=== PATIENT | female | born 1995 | race Caucasian/White ===

== ENCOUNTER 2020-05-13 11:01 | Day surgery (SDC) | payer BC ==
[2020-05-13 11:36] VITALS: BP 124/71; BMI 23.6
[2020-05-13] MEDS ORDERED: hydrALAZINE 20 MG/ML VIAL SLOW IVP PRN (11:55)
[2020-05-13] MEDS ORDERED: FLU VACC QS2020-21(6MOS UP)/PF 60 MCG/0.5 ML SYRINGE IM ONE (12:15)
[2020-05-13 12:57] LABS: FFN Internal QC Analyzer PASS (PASS); FFN Internal QC Cassette PASS (PASS); Fetal Fibronectin Negative (Negative)
--- NOTE | 2020-05-13 13:03 | ULT ---
Limited obstetrical ultrasound: 05/13/2020 COMPARISON: None HISTORY: 24-year-old female with vaginal spotting TECHNIQUE: Multiplanar grayscale sonographic imaging of the gravid uterus obtained with transabdomina l and translabial imaging FINDINGS: A single intrauterine gestation is present demonstrating a vertex presentation. The placent a is located posteriorly, demonstrating no evidence for previa or abruption. heart rate is 133 bpm. Amniotic fluid index is 7.7 cm. Cervical length is estimated at 3.4 cm on translabial imaging. anatomy is not evaluated on this exam. IMPRESSION: Single intrauterine gestation as detailed above. Cervical length is estimated at 3.4 cm. Amniotic fluid index of 7.7 cm.
--- NOTE | 2020-05-13 14:01 | PRG ---
DATE OF SERVICE: 05/13/2020 TIME OF SERVICE: 1330 hours. PRESENTING COMPLAINT: Spotting at 29 weeks gestation. HISTORY OF PRESENT ILLNESS: Ms. Doyle reports some spotting noted on the toilet tissue. She wiped this morning. No gross bleeding. No leakage of fluid. Active fetus. Occasional cramping. She has not had intercourse recently. She sees Dr. Shayan Perry at [facility] and reports an uncomplicated . [employer] HISTORY: As noted. Primigravida. BRICE of 07/28. She is blood type B positive, antibody negative. Pap negative. Rubella immune. VDRL nonreactive. Hepatitis B, GC, Chlamydia negative. 50 g was 124. MEDICAL HISTORY: None. SURGICAL HISTORY: Jaw surgery. ALLERGIES: DENIES. MEDICATIONS: vitamins. SOCIAL HISTORY: Denies tobacco, alcohol, or drug use. FAMILY HISTORY: Noncontributory. REVIEW OF SYSTEMS: Noncontributory. PHYSICAL EXAMINATION: GENERAL: White female, in no acute distress. VITAL SIGNS: Temperature 98.2, pulse rate 85, respirations 18, blood pressure 117/82. HEENT: Within normal limits. LUNGS: Clear to auscultation bilaterally. HEART: Regular rate and rhythm. ABDOMEN: Soft and nontender. Fundal height of 29 cm. FHTs are 140s. Vulva without lesions. Vaginal exam was performed by RN with fibronectin collection which revealed no blood or mucus noted and a closed long cervix. EXTREMITIES: No clubbing, cyanosis, or edema. fibronectin was negative. DIAGNOSTIC STUDIES: Ultrasound was performed, which revealed cervical length of approximately 3.5 cm with a posterior placenta. No previa and an ELI of 7.7. This ELI seems to be on the low end for gestational age, however, is not consistent with oligohydramnios. monitoring is carried out for greater than an hour which revealed no contractions. Positive accelerations, no decelerations, category 1 heart rate tracing. IMPRESSION: Vaginal spotting, likely due to Valsalva and/or friable cervix at 29 weeks. No evidence of labor or persistent bleeding. PLAN: Reassurance. The patient will keep scheduled followup with Dr. Perry. Dr. Perry notified of the hospitalization and findings, and ER precautions given to the patient. Job ID: [id number]
== END 2020-05-13 13:30 | disposition home health service (06) ==
LOC: L&D/OP 11:01
PROVIDERS: ATTEND Obstetrics & Gynecology
DX: O26.853 Spotting complicating pregnancy, third trimester (principal); Z3A.29 29 weeks gestation of pregnancy
CPT/HCPCS: 76815; 82731

== ENCOUNTER 2020-07-29 19:38 | Inpatient (IN) | payer BC ==
[~2020-07-29 19:38] MED LIST: Bupivacaine 0.25% HCL 30 ML VIAL ONE
[2020-07-29] MEDS ORDERED: HYDROcodone/Acetaminophen 5/325 mg Tablet PO PRN ×2 (21:22)
[2020-07-29] MEDS ORDERED: Lidocaine 1% (PF) 30 ML VIAL SC PRN (21:22)
[2020-07-29] MEDS ORDERED: Butorphanol Tartrate 1 MG/ML VIAL SLOW IVP PRN (21:22)
[2020-07-29] MEDS ORDERED: Ondansetron PF 4 MG/2 ML Vial IVP PRN ×2 (21:22→23:56)
[2020-07-29] MEDS ORDERED: Ibuprofen 800 MG TAB PO PRN (21:22)
[2020-07-29] MEDS ORDERED: NS / Oxytocin 40 units/1000ml 1,000 ML IV PRN (21:22)
[2020-07-29] MEDS ORDERED: hydrALAZINE 20 MG/ML VIAL SLOW IVP PRN (21:22)
[2020-07-29] MEDS ORDERED: Promethazine HCl 25 MG/ML VIAL IM PRN ×2 (21:22→23:56)
[2020-07-29] MEDS: Lactated Ringer's 1,000 ML IV SCH ×2 (21:31→23:31)
--- NOTE | 2020-07-29 22:13 | HP ---
TIME OF EVALUATION: Roughly 2109, it is now 2126. A patient of Dr. Perry. CHIEF COMPLAINT: Contractions/pelvic pain at 40 weeks and 1 day. HISTORY OF PRESENT ILLNESS: This is a 24-year-old, G1, P0 with an EDC of July 28, making her 40 weeks and 1 day. She states that she was seen yesterday in the office and everything was fine. She is here for now regular contractions about every 2 to 4 minutes, but no leakage of fluid, no vaginal bleeding, and she has good movement. She denies fever, recent trauma, or sick contacts. REVIEW OF SYSTEMS: GENERAL: No sick contacts. No fever. No chills. PULMONARY: No shortness of breath. CARDIOVASCULAR: No chest pain. EXTREMITIES: No unusual lower extremity edema, or pain. PAST MEDICAL HISTORY: Negative. PAST SURGICAL HISTORY: Negative. ALLERGIES: NONE. OBSTETRICAL HISTORY: She is a G1, P0. MEDICATIONS: Include vitamins. SOCIAL HISTORY: Negative for alcohol, tobacco, and drug use. PHYSICAL EXAMINATION: VITAL SIGNS: Her vitals show a temperature of 98.5, pulse of 80, respirations are 18, blood pressure is 139/86. GENERAL: She is in no acute distress. ABDOMEN: Gravid with palpable contractions. I palpate firm. Estimated weight is around 6.5 pounds or so. On pelvic exam by the RN, cervix was noted to be 1 cm dilated, 80% effaced, -3 station. On monitor, heart tones are reactive with moderate variability and accelerations, and no pathological decelerations. The rate is around 130s to 140s. Contractions are noted on tocodynamometer about every 2 to 4 minutes. On the monitor, there are some breaks in the tracing where the maternal heart rate is picked up, but I do see the baby's tracing with a baseline that is actually around 150s. We will try to replace this Doppler, so they can have a better read. Again, right now we have a broken tracing, what I do see looks reactive and I do see an acceleration at roughly 2128. ASSESSMENT: This is a 24-year-old, G1, P0, at full term (40 weeks and 1 day), who is GBS negative, in early labor. Although she is only about 1 cm dilated, I do not feel comfortable sending her home with regular contractions at an EGA of 40 weeks with a blood pressure of 139/86. PLAN: 1. Observe blood pressures. 2. I would not get PIH labs at this time because some of these pressures may be due to pain. 3. Pain control. 4. Admission for early labor. 5. If she develops any evidence of severe preeclampsia based on criteria, then we will give magnesium sulfate. 6. Dr. Perry has been TigerTexted on the patient's status. Job ID: [id number]
[2020-07-29 22:31] LABS: Hemoglobin 13.6 g/dL (12.0-16.0); Mean Corpuscular HGB CONC 34.2 g/dL (32.0-36.0); Mean Corpuscular Hemoglobin 30.2 pg (27.0-31.0); Mean Corpuscular Volume 88.3 fL (78.0-98.0); Mean Platelet Volume 10.7 fL (7.4-10.4); Platelet Count 173 thou/uL (130-400); RBC Distribution Width 12.8 % (11.5-14.5); Red Blood Cell (RBC) Count 4.51 mill/uL (4.20-5.40)
[2020-07-29 23:06] LABS: Syphilis Antibody Nonreactive (Nonreactive); Syphilis Antibody Index 0.02 S/CO (<1.00 Non-Reactive)
[2020-07-29] MEDS ORDERED: Fentanyl 4 mcg/Bup 0.1% Cadd 100 ML ONE (23:06)
[2020-07-29 23:07] VITALS: BMI 27.2
[2020-07-29 23:42] LABS: HBSAg Index 0.17 S/CO (0-0.99); HIV (1/2) Antibody/Antigen Non-Reactive (NonReactive); HIV 1/2 INDEX 0.11 S/CO (<1.00); Hep B Surf Ag Non-Reactive S/CO (NonReactive)
[2020-07-29] MEDS ORDERED: Communication Order-Pharmacy FS SCH (23:45)
[2020-07-29] MEDS ORDERED: Fentanyl 4 mcg/Bupivacaine 0.1% Cassette 100 ML EPIDURAL SCH (23:45)
[2020-07-29] MEDS ORDERED: diphenhydrAMINE 50 MG/ML VIAL IVP PRN (23:56)
[2020-07-29] MEDS ORDERED: Naloxone HCl 0.4 mg/ml Vial IVP PRN ×2 (23:56)
[2020-07-29] MEDS ORDERED: Acetaminophen 325 MG TAB PO PRN (23:56)
[2020-07-29] MEDS ORDERED: Lactated Ringer's 500 ML IV PRN (23:56)
[2020-07-29] MEDS ORDERED: ePHEDrine 50 MG/ML VIAL SLOW IVP PRN (23:56)
--- NOTE | 2020-07-30 06:01 | PDOC.BPN ---
- Brief Progress Note Personnel Consultant: Second Stage Meconium I was at bedside and at nurses station while patient was pushing. My last eval had her at +2 to +3 with pushing. Mec noted in AF. NICU nurse requested at delivery. Gas and placenta requested to be sent after delivery. Dr Perry has now arrived (around 15 minutes ago) and is at bedside/perineum.
--- NOTE | 2020-07-30 06:09 | PDOC.OPDEL ---
OB Operative/Delivery Note Delivery Dr/Surgeon: [place] Pre-Delivery Diagnosis: active labor Procedure/Post Delivery Dx: spontaneous vaginal delivery Weeks gestation: 40 Anesthesia: epidural - Findings A Sex: male - Additional Findings/Plan Placenta delivered: spontaneous Repaired Obstetrical Laceration: 2nd degree (and bilateral labial) Estimated blood loss: 300ml QBL pending Post delivery plan: routine recovery
[2020-07-30] MEDS ORDERED: NS w/ Oxytocin 30 units 500 ML ONE (07:02)
[2020-07-30] MEDS ORDERED: Benzocaine-Menthol 82.5 ML CAN TOP PRN (08:40)
[2020-07-30] MEDS ORDERED: diphenhydrAMINE 25 MG CAP PO PRN (08:40)
[2020-07-30] MEDS ORDERED: HYDROcodone/Acetaminophen 5/325 mg Tablet PO PRN ×2 (08:40)
[2020-07-30] MEDS ORDERED: NS / Oxytocin 40 units/1000ml 1,000 ML IV SCH (08:40)
[2020-07-30] MEDS ORDERED: Lanolin Ointment 7 GM TUBE TOP PRN (08:40)
[2020-07-30] MEDS ORDERED: Ondansetron PF 4 MG/2 ML Vial IVP PRN (08:40)
[2020-07-30] MEDS ORDERED: Milk Of Magnesia 30 ML UDCUP PO PRN (08:40)
[2020-07-30] MEDS ORDERED: hydrALAZINE 20 MG/ML VIAL SLOW IVP PRN (08:40)
[2020-07-30] MEDS ORDERED: Preparation H Ointment 28 GM TUBE PR PRN (08:40)
[2020-07-30] MEDS ORDERED: Bisacodyl 10 MG SUPP PR PRN (08:40)
[2020-07-30] MEDS ORDERED: Ferrous Sulfate 325 MG TAB PO SCH (09:00)
[2020-07-30 13:18] LABS: SARS-CoV-2 MS2 Positive; SARS-CoV-2 N Gene Negative; SARS-CoV-2 S Gene Negative; SARS-CoV-2 by NAA Not Detected (NotDetected); SARS-CoV-2 orf1ab Negative
[2020-07-30] MEDS: Ibuprofen 800 MG TAB PO SCH ×2 (13:58→21:21)
[2020-07-30] MEDS: Docusate Calcium (SURFAK) 240 MG CAP PO SCH ×2 (20:29→21:21)
[2020-07-30] MEDS: Ferrous Sulfate 325 MG TAB PO SCH (20:30)
[2020-07-30] MEDS: Lactated Ringer's 1,000 ML IV SCH (20:30)
[2020-07-30] MEDS: Prenatal Vitamin 1 TAB PO SCH (20:30)
[2020-07-31] MEDS: Ibuprofen 800 MG TAB PO SCH ×2 (05:40→13:52)
--- NOTE | 2020-07-31 07:23 | PDOC.PP ---
Post Progress Note Post Day #: 1 Subjective: Doing well. No concerns. Eager for discharge home, states has good support at home. Tolerating PO well without n/v. Lochia slightly more than normal period. Pain well-controlled, mild soreness. Voiding and passing flatus. Ambulating. Denies LONG, vision changes, CP, SOB. PO intake tolerated: yes Flatus: yes Ambulation: yes Vital Signs (12 hours) Temp Pulse Resp BP Pulse Ox 07/31/20 05:44 98.4 F 68 16 126/68 07/30/20 23:54 98.1 F 66 16 120/57 L 07/30/20 19:40 97.6 F 93 16 136/91 H 97 Weight Weight 78.925 kg - Physical Examination General: NAD (good spirits, resting comfortably) Cardiovascular: no m/r/g, RRR Respiratory: clear to auscultation bilaterally Abdominal: + bowel sounds, no distention, appropriately TTP Fundus firm & at: Umbilicus Extremities: negative homans (B) (No edema) Neurological: no gross focal deficits Psychiatric: A&Ox3, normal affect Result Diagrams: 07/29/20 22:08 Additional Labs: Post Labs Hep Bs Antigen Non-Reactive S/CO (NonReactive) 07/29/20 22:09 Blood Type B POSITIVE 07/30/20 00:23 - Assessment/Plan 24yo ->1 s/p , now PPD#1 #PPD1 s/p - QBL 645 - 2nd degree lac - Routine PP care - tolerating PO well, ambulating, flatus, voiding, pain controlled, lochia decreasing - GBS negative - eager for discharge PCP: [place] Dispo: Eager for discharge this AM. D/c today pending mom/baby clinical course.
[2020-07-31] MEDS: Ferrous Sulfate 325 MG TAB PO SCH (08:01)
[2020-07-31] MEDS: Docusate Calcium (SURFAK) 240 MG CAP PO SCH (08:13)
[2020-07-31] MEDS: Prenatal Vitamin 1 TAB PO SCH (08:13)
[2020-07-31] MEDS ORDERED: Adacel (T-DAP) 0.5 ML SYRINGE IM ONE (08:40)
[2020-07-31 09:00] VITALS: BP 106/60; TEMP 99
== END 2020-07-31 15:35 | disposition home or self-care (01) | DRG 807 ==
LOC: L&D/OP 19:38 → L&D 21:22 → 3SW 07-30 20:52
PROVIDERS: ADMIT Obstetrics & Gynecology; ATTEND Obstetrics & Gynecology
PROC: 10E0XZZ Delivery of Products of Conception, External Approach (ICD-10-PCS; principal; 2020-07-30)
PROC: 0KQM0ZZ Repair Perineum Muscle, Open Approach (ICD-10-PCS; 2020-07-30)
DX: O77.0 Labor and delivery complicated by meconium in amniotic fluid (principal); Z37.0 Single live birth; Z20.822 Contact with and (suspected) exposure to COVID-19; O70.1 Second degree perineal laceration during delivery; Z3A.40 40 weeks gestation of pregnancy
CPT/HCPCS: 36415; 51702; 85027; 86780; 86850; 86900; 86901; 87340; 87389; 87635; 99285; J2590; S0020; U0003